=== PATIENT | female | born 1975 | race Caucasian/White ===

== ENCOUNTER 2020-01-04 17:48 | Emergency (ER) | payer OTHER, SELFPAY ==
[2020-01-04 17:55] VITALS: BP 151/94; PULSE 92; RESP 18; TEMP 37.1; O2SAT 100; BMI 29.1
--- NOTE | 2020-01-04 18:14 | DI.RAD.S_ITS ---
PROCEDURE: XR CHEST 1V INDICATIONS: syncope, chest pain, occurred while coughing TECHNIQUE: One view of the chest was acquired. COMPARISON: None. FINDINGS: Surgical changes and devices: None. Lungs and pleura: Lungs are clear. No pleural effusions or pneumothorax. Mediastinum: Mediastinal contours appear normal. Heart size is normal. Bones and chest wall: No suspicious bony lesions. Overlying soft tissues appear unremarkable. IMPRESSION: No trauma found, sources chest pain is not identified. No pneumonia seen. Dictated by: Zhang Nobles M.D. on 01/04/2020 at 18:45 Approved by: Zhang Nobles M.D. on 01/04/2020 at 18:46
--- NOTE | 2020-01-04 18:17 | ED.SYNCOPE ---
HPI - Syncope General Chief Complaint: Syncope Stated Complaint: coughing, blacked out earlier Time Seen by Provider: 01/04/20 18:12 Source: patient Mode of arrival: Ambulatory Limitations: no limitations History of Present Illness HPI narrative: This is a 44-year-old female comes emergency department with complaint of coughing and syncopal episode. Patient states for about a week she has had some nasal congestion and clear drainage. She developed a migraine and had a headache on the right side for about 3 days which has almost completely resolved but is still present. She states she had a telemedicine visit with her physician. At some point she was directed to get covered testing on Tuesday which she had in [place] she has not received the results. She has not had fevers but she has had a cough which has been nonproductive as well as some chest pain on the left side. She states that she has been sleeping for the regularly for the last couple days and today she woke up coughing very hard and went to use her inhaler and woke up on the floor. Patient states she did use her inhaler afterwards it was helpful. She has had episodes of vomiting intermittently but related these to her headache. She has not had any diarrhea or other GI symptoms. She denies any urinary symptoms. She states that she does have ADHD, generalized anxiety, asthma which she takes Advair twice daily and was instructed by her physician to take albuterol 4 times daily regardless of her symptoms during the pandemic which she feels is probably making her more anxious. 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 Related Data Home Medications Medication Instructions Recorded Confirmed dextroamphetamine-amphetamine 20 20 mg PO BID 08/08/19 08/08/19 mg tablet fluticasone 100 mcg-salmeterol 50 1 puff INHALATION BID 08/08/19 08/08/19 mcg/dose blistr powdr for inhalation fluticasone propionate 100 2 inhalation INHALATION BID 08/08/19 08/08/19 mcg/actuation blister powder for inhalation venlafaxine 150 mg 150 mg PO DAILY 08/08/19 08/08/19 capsule,extended release 24 hr Previous Rx's Medication Instructions Recorded azithromycin 250 mg tablet See Rx Instructions PO .COMPLEX #6 08/08/19 tab Allergies Allergy/AdvReac Type Severity Reaction Status Date / Time No Known Drug Allergies Allergy Verified 01/04/20 17:55 Review of Systems Review of Systems ROS Unobtainable: All systems reviewed & are unremarkable except as noted in HPI and below Patient History Medical History (Updated 01/04/20 @ 20:09 by Brenda Nava DO) ADHD (Acute) Anxiety (Acute) Asthma (Acute) Surgical History (Updated 01/04/20 @ 18:30 by Brenda Nava DO) H/O breast augmentation (Acute) H/O: hysterectomy (Acute) Exam Narrative Exam Narrative: GENERAL: Alert and oriented x three, well-nourished female in mild distress. Patient is mildly shaky. She relates this to her recent use of albuterol at home. HEENT: Head normocephalic, atraumatic, EOMI, pupils reactive, face symmetric, moist mucous membranes NECK: Supple, full range of motion CARDIOVASCULAR: Regular rate and rhythm without murmurs, rubs or gallops. RESPIRATORY: Breath sounds equal bilaterally, no wheezes rales or rhonchi. No tachypnea, no accessory muscle use. Patient is able to speak with in full sentences without any issue. No respiratory distress appreciated. ABDOMEN: Soft, nontender. Normoactive bowel sounds all 4 quadrants. No guarding or rebound, rigidity, no mass : No CVA tenderness EXTREMITIES: Normal range of motion, no clubbing or edema. Neurovascularly intact NEUROLOGICAL: Cranial nerves II through XII grossly intact. Moving all extremities SKIN: Warm, dry, no petechiae, no rashes or lesions. Initial Vital Signs Initial Vital Signs: Vital Signs Temperature 98.8 F 01/04/20 17:55 Pulse Rate 92 H 01/04/20 17:55 Respiratory Rate 18 01/04/20 17:55 Blood Pressure 151/94 H 01/04/20 17:55 Pulse Oximetry 100 01/04/20 17:55 Course Orders Ordered: ED Orders 01/04/20 18:14 XR chest 1V Stat 01/04/20 19:21 C-Reactive Protein Quant Stat Complete Blood Count AUTO DIFF Stat Comprehensive Metabolic Panel Stat D Dimer Stat Troponin & CK Cardiac Panel Stat 01/04/20 19:52 Urine Drug Screen, Rapid Stat Discontinued Medications Sodium Chloride (Normal Saline 0.9%) 1,000 mls @ 1,000 mls/hr IV BOLUS ONE Stop: 01/04/20 19:13 Last Infusion: 01/04/20 20:37 Dose: 0 mls/hr Documented by: Admin: 01/04/20 19:10 Dose: 1,000 mls/hr Documented by: ROSA Ketorolac Tromethamine (Toradol) 15 mg IV NOW ONE Stop: 01/04/20 18:28 Last Admin: 01/04/20 19:10 Dose: 15 mg Documented by: ROSA Vital Signs Vital signs: Vital Signs - 8 hr 01/04/20 17:55 01/04/20 19:44 01/04/20 20:10 Temperature 98.8 F Pulse Rate 92 H 84 80 Respiratory Rate 18 27 H 23 Blood Pressure 151/94 H Blood Pressure [Left Arm] 127/76 134/76 Pulse Oximetry 100 100 99 01/04/20 20:37 Temperature Pulse Rate 77 Respiratory Rate 16 Blood Pressure 128/75 Blood Pressure [Left Arm] Pulse Oximetry 97 MDM - Syncope Lab Data Attestation: I reviewed the patient's lab results. Result diagrams: 01/04/20 19:21 01/04/20 19:21 Labs: Lab Results 01/04/20 01/04/20 01/04/20 Range/Units 19:21 19:21 19:21 WBC 5.2 (4.5-11.0) X10^3/uL RBC 4.50 (4.0-5.2) X10^6/uL Hgb 14.0 (12.0-16.0) g/dL Hct 41.7 (36-46) % MCV 92.6 (80-100) fL MCH 31.1 (26-34) PG MCHC 33.5 (30-36) % RDW 13.7 (11.6-14.8) % Plt Count 238 (150-400) X10^3/uL Neut % (Auto) 63.6 (50-75) % Lymph % (Auto) 27.2 (25-40) % Spalding % (Auto) 7.2 (3-14) % Eos % (Auto) 1.1 L (2-4) % Baso % (Auto) 0.9 (0-2) % Neut # (Auto) 3300 (3298-2380) /uL Lymph # (Auto) 1400 (3985-8389) /uL Spalding # (Auto) 400 (0-900) /uL Eos # (Auto) 100 (0-450) /uL Baso # (Auto) 0 (0-100) /uL D-Dimer < 200 (<230) ng/mL Sodium 140 (137-145) mmol/L Potassium 3.4 (3.4-5.1) mmol/L Chloride 109 H (98-107) mmol/L Carbon Dioxide 24 (22-32) mmol/L BUN 14 (7-17) mg/dL Creatinine 0.82 (0.52-1.04) mg/dL Estimated GFR > 60.0 (>60) mL/min BUN/Creatinine Ratio 17.1 (6-22) Glucose 75 (70-100) mg/dL Calcium 9.0 (8.4-10.2) mg/dL Total Bilirubin 0.3 (0.2-1.3) mg/dL AST 18 (14-36) IU/L ALT 13 (<35) IU/L Alkaline Phosphatase 67 (38-126) U/L Total Creatine Kinase 64 (30-135) U/L CK-MB (CK-2) TNP CK-MB (CK-2) Rel Index TNP Troponin I < 0.012 (0.01-0.034) ng/mL C-Reactive Protein (<1.0) mg/dL Total Protein 6.5 (6.3-8.2) g/dL Albumin 3.8 (3.5-5.0) g/dL Globulin 2.7 (1.7-4.1) g/dL Albumin/Globulin Ratio 1.4 (1.0-2.8) U Opiates 300ng/mL cut (Negative) Ur Oxycodone Screen (Negative) Urine Methadone Screen (Negative) Ur Barbiturates Screen (Negative) U Tricyclic Antidepress (Negative) Ur Phencyclidine Scrn (Negative) Ur Amphetamines Screen (Negative) U Methamphetamines Scrn (Negative) Ur MDMA Scrn (Ecstasy) (Negative) U Benzodiazepines Scrn (Negative) Urine Cocaine Screen (Negative) U Marijuana (THC) Screen (Negative) 01/04/20 01/04/20 Range/Units 19:21 19:52 WBC (4.5-11.0) X10^3/uL RBC (4.0-5.2) X10^6/uL Hgb (12.0-16.0) g/dL Hct (36-46) % MCV (80-100) fL MCH (26-34) PG MCHC (30-36) % RDW (11.6-14.8) % Plt Count (150-400) X10^3/uL Neut % (Auto) (50-75) % Lymph % (Auto) (25-40) % Spalding % (Auto) (3-14) % Eos % (Auto) (2-4) % Baso % (Auto) (0-2) % Neut # (Auto) (6991-5653) /uL Lymph # (Auto) (9904-1178) /uL Sp[place]ding # (Auto) (0-900) /uL Eos # (Auto) (0-450) /uL Baso # (Auto) (0-100) /uL D-Dimer (<230) ng/mL Sodium (137-145) mmol/L Potassium (3.4-5.1) mmol/L Chloride (98-107) mmol/L Carbon Dioxide (22-32) mmol/L BUN (7-17) mg/dL Creatinine (0.52-1.04) mg/dL Estimated GFR (>60) mL/min BUN/Creatinine Ratio (6-22) Glucose (70-100) mg/dL Calcium (8.4-10.2) mg/dL Total Bilirubin (0.2-1.3) mg/dL AST (14-36) IU/L ALT (<35) IU/L Alkaline Phosphatase (38-126) U/L Total Creatine Kinase (30-135) U/L CK-MB (CK-2) CK-MB (CK-2) Rel Index Troponin I (0.01-0.034) ng/mL C-Reactive Protein < 0.5 (<1.0) mg/dL Total Protein (6.3-8.2) g/dL Albumin (3.5-5.0) g/dL Globulin (1.7-4.1) g/dL Albumin/Globulin Ratio (1.0-2.8) U Opiates 300ng/mL cut Negative (Negative) Ur Oxycodone Screen Negative (Negative) Urine Methadone Screen Negative (Negative) Ur Barbiturates Screen Negative (Negative) U Tricyclic Antidepress Negative (Negative) Ur Phencyclidine Scrn Negative (Negative) Ur Amphetamines Screen Negative (Negative) U Methamphetamines Scrn Negative (Negative) Ur MDMA Scrn (Ecstasy) Negative (Negative) U Benzodiazepines Scrn Negative (Negative) Urine Cocaine Screen Negative (Negative) U Marijuana (THC) Screen Positive H (Negative) Point of Care Testing Test Results Negative Urine Dip Bedside Urine Glucose Negative Bedside Urine Bilirubin - Negative Bedside Urine Ketone - Negative Urine Specific Stanley 1.015 Bedside Urine Occult Blood - Negative Bedside Urine pH 6.5 Bedside Urine Protein - Negative Bedside Urine Urobilinogen - Negative Bedside Urine Nitrite - Negative Bedside Urine Leukocytes - Negative Esterase Imaging Data Chest x-ray: Radiologist's Impression: [address] [address] XRay Report Signed Patient: Radha Childs RMR#: [id number] : 1975Acct:[id number] Age/Sex: 44 / FDate of Service: 01/04/20 Loc: ED Accession Number: [id number] Procedure: XR chest 1V Ordering Provider: Brenda Nava D.O. PROCEDURE: XR CHEST 1V INDICATIONS: syncope, chest pain, occurred while coughing TECHNIQUE: One view of the chest was acquired. COMPARISON: None. FINDINGS: Surgical changes and devices: None. Lungs and pleura: Lungs are clear. No pleural effusions or pneumothorax. Mediastinum: Mediastinal contours appear normal. Heart size is normal. Bones and chest wall: No suspicious bony lesions. Overlying soft tissues appear unremarkable. IMPRESSION: No trauma found, sources chest pain is not identified. No pneumonia seen. Dictated by: Zhang Nobles M.D. on 01/04/2020 at 18:45 Approved by: Zhang Nobles M.D. on 01/04/2020 at 18:46 ECG Data Attestation: I personally reviewed and interpreted this ECG as follows: Prior ECG tracings: not available for review Interpretation: Patient has sinus rhythm rate of 87, P are 139 QRS of 97 QTC of 408. V1 V2 show Q-wave. No clear ST elevation appreciated. No depression. No prior EKGs available. MDM Narrative Medical decision making narrative: Patient's chest x-ray is negative any acute changes, point of care urine and test are both negative. CBC is normal with low eosinophils but lymphocyte count is in the normal range as well as neutrophils. D-dimer is negative. Patient's chloride is 109 but otherwise normal electrolytes and in renal function with normal LFTs and negative troponin with no major changes in patient's EKG. Urine tox shows positive for thc, no other illicit. Patient ambulated into the department without any issue, she had what sounds like a syncopal episode while having a coughing ?fit? she was not wheezy on exam or in any respiratory distress here in the department. She does have covid testing pending which is likely to be resulted over the next several days but at this time she would not meet any criteria for admission and her labs do not fit the traditional pattern at this time. Patient does not have any other findings suspicious for other emergent causes. Patient states she does have a spacer along with her albuterol which is a recent prescription. Discharge Plan Departure Patient Disposition: Home Clinical Impression: Syncope Qualifiers: Encounter type: initial encounter Discharge Date/Time: 01/04/20 20:37 Instructions: DI for Syncope in Adults (Fainting) Activity Restrictions/Additional Instructions: *As your coronavirus test from Tuesday is still pending you should continue to self isolate as recommended by the CDC and [facility]. *What to do: * per recommendations from the CDC and the [facility] Department of Health * stay home except to get medical care. Restrict activities outside your home, except for getting medical care. Do not go to work, school, or public areas. Avoid using public transportation, ride sharing, or taxis. * separate yourself from other people in your home. * call ahead before visiting your doctor * Wear a face mask * Cover your coughs and sneezes * Clean your hands often * Avoid sharing household items * Clean all high-touch services every day * Monitor your symptoms and seek prompt medical attention if your illness is worsening, particularly with difficulty in breathing. Discussed continuing home isolation * for individuals with symptoms who are confirmed or suspected cases of COVID-19 and are directed to care for themselves at home, discontinue home isolation under the following conditions: 1. At least 72 hours have passed since recovery, defined as resolution of fever without the use of fever reducing medications, and improvement in respiratory symptoms (cough, shortness of breath) AND, 2. At least 7 days have passed since symptoms 1st appeared Individuals with laboratory confirmed COVID-19 who have not had any symptoms may discontinue home isolation when at least 7 days have passed since the date of their 1st COVID-19 diagnostic test and have had no subsequent illness. Continue to use your Flovent as prescribed. I would recommend using your inhaler more on a as needed basis for her albuterol. I would also recommend using with a spacer. Continue your other home medications as prescribed. Prescriptions: No Action venlafaxine [Effexor XR] 150 mg capsule,extended release 24hr 150 mg PO DAILY RF: 0 dextroamphetamine-amphetamine [Adderall] 20 mg tablet 20 mg PO BID RF: 0 Flovent Diskus 100 mcg/actuation blister with device 2 inhalation INHALATION BID RF: 0 fluticasone propion-salmeterol [Advair Diskus] 100-50 mcg/dose blister with device 1 puff INHALATION BID RF: 0 azithromycin 250 mg tablet See Rx Instructions PO .COMPLEX Qty: 6 RF: 0
[2020-01-04] MEDS: SODIUM CHLORIDE 0.9% 1,000 ML 1000 ML IV (19:10)
[2020-01-04] MEDS: KETOROLAC 60 MG/2 ML VIAL 15 MG IV (19:10)
--- NOTE | 2020-01-04 19:13 | PC.NURSE ---
Pt states she was showing sx of covid19. was swabbed yesterday at her PCP in [place]. had a coughing fit abput 30min-1hr [employer] and passed out and woke up on the floor does not know how long she lost conciousness for. reports only pain is in her chest and back from coughing. placed on graphic manager. EKG obtained. IV placed and labs sent. Lab in to draw. torodol given and IVF infusing. speaking in full sentences. 100% RA.
[2020-01-04 19:29] LABS: Add Manual Diff / Slide Review NO; Basophils Absolute Auto 0 /uL (0-100); Basophils Percent Auto 0.9 % (0-2); Eosinophils Absolute Auto 100 /uL (0-450); Eosinophils Percent Auto 1.1 % (2-4); Hematocrit 41.7 % (36-46); Lymphocytes Absolute Auto 1400 /uL (1100-4500); Lymphocytes Percent Auto 27.2 % (25-40); Mean Corpuscular HGB Conc 33.5 % (30-36); Mean Corpuscular Hemoglobin 31.1 PG (26-34); Mean Corpuscular Volume 92.6 fL (80-100); Monocytes Absolute Auto 400 /uL (0-900); Monocytes Percent Auto 7.2 % (3-14); Neutrophils Absolute Auto 3300 /uL (1500-7000); Neutrophils Percent Auto 63.6 % (50-75); Platelet Count 238 X10^3/uL (150-400); Red Cell Distribution Width 13.7 % (11.6-14.8); White Blood Cell Count 5.2 X10^3/uL (4.5-11.0)
[2020-01-04 19:40] LABS: D Dimer < 200 ng/mL (<230)
[2020-01-04 19:41] LABS: Alanine Aminotransferase 13 IU/L (<35); Albumin 3.8 g/dL (3.5-5.0); Albumin Globulin Ratio 1.4 (1.0-2.8); Alkaline Phosphatase 67 U/L (38-126); Aspartate Aminotransferase 18 IU/L (14-36); BUN Creatinine Ratio 17.1 (6-22); Bilirubin Total 0.3 mg/dL (0.2-1.3); Blood Urea Nitrogen 14 mg/dL (7-17); Carbon Dioxide 24 mmol/L (22-32); Chloride 109 mmol/L (98-107); Creatine Kinase 64 U/L (30-135); Estimated Glomerular Filt Rate > 60.0 mL/min (>60); Globulin 2.7 g/dL (1.7-4.1); Glucose 75 mg/dL (70-100); HEMOLYSIS < 15 (0-50); Potassium 3.4 mmol/L (3.4-5.1); Sodium 140 mmol/L (137-145); Total Protein 6.5 g/dL (6.3-8.2)
[2020-01-04 19:44] VITALS: BP 127/76; PULSE 84; RESP 27; O2SAT 100
[2020-01-04 19:49] LABS: C-Reactive Protein Quant < 0.5 mg/dL (<1.0)
[2020-01-04 19:53] LABS: Troponin I < 0.012 ng/mL (0.01-0.034)
[2020-01-04 20:06] LABS: UR Morphine/Opiate cutoff 300 Negative (Negative); Ur Creatinine Normal (Normal); Ur Specific Gravity Normal (Normal); Urine Amphetamines Negative (Negative); Urine Barbiturates Negative (Negative); Urine Benzodiazepines Negative (Negative); Urine Cocaine Negative (Negative); Urine MDMA Negative (Negative); Urine Methadone Negative (Negative); Urine Methamphetamines Negative (Negative); Urine Oxycodone Negative (Negative); Urine Phencyclidine Negative (Negative); Urine Tetrahydrocannabinol Positive (Negative); Urine Tricyclic Antidepressant Negative (Negative); Urine pH Normal (Normal)
[2020-01-04 20:10] VITALS: BP 134/76; PULSE 80; RESP 23; O2SAT 99
[2020-01-04 20:37] VITALS: BP 128/75; PULSE 77; RESP 16; O2SAT 97
== END 2020-01-04 20:37 | disposition home or self-care (01) ==
PROVIDERS: Emergency Provider Emergency Medicine
DX: R55 Syncope and collapse (principal); R05 Cough; R07.9 Chest pain, unspecified
CPT/HCPCS: 36415; 71045; 80053; 80305; 81003; 81025; 82550; 84484; 85025; 85379; 86140; 93005; 96361; 96374; 99284; J1885

== ENCOUNTER → 2020-07-10 07:13 | Outpatient (CLI) | payer OTHER, SELFPAY ==
[2020-07-10 11:19] LABS: Alanine Aminotransferase 20 IU/L (<35); Albumin 4.5 g/dL (3.5-5.0); Albumin Globulin Ratio 1.7 (1.0-2.8); Alkaline Phosphatase 97 U/L (38-126); Aspartate Aminotransferase 29 IU/L (14-36); BUN Creatinine Ratio 23.5 (6-22); Bilirubin Total 0.4 mg/dL (0.2-1.3); Blood Urea Nitrogen 19 mg/dL (7-17); Calcium 9.6 mg/dL (8.4-10.2); Carbon Dioxide 28 mmol/L (22-32); Chloride 103 mmol/L (98-107); Cholesterol 218 mg/dL (140-199); Estimated Glomerular Filt Rate > 60.0 mL/min (>60); Globulin 2.7 g/dL (1.7-4.1); Glucose 81 mg/dL (70-100); HDL Cholesterol 84 mg/dL (40-60); HEMOLYSIS < 15 (0-50); LDL Cholesterol Calculated 114 mg/dL (<100); Potassium 4.6 mmol/L (3.4-5.1); Sodium 137 mmol/L (137-145); Total Protein 7.2 g/dL (6.3-8.2); Triglycerides 99 mg/dL (35-150)
[2020-07-10 11:29] LABS: Free T4, Direct Thyroxine 1.41 ng/dL (0.78-2.19)
[2020-07-10 11:42] LABS: Thyroid Stimulating Hormone 5.32 uIU/mL (0.47-4.68)
[2020-07-10 11:52] LABS: Vitamin D 25 Hydroxy (D3) 44.6 ng/mL (30.0-100.0)
[2020-07-11 10:29] LABS: Insulin Level Total 3.9 uIU/mL (2.6-24.9)
== END ==
PROVIDERS: PCP Registered Nurse; Referring Provider Registered Nurse; Visit Provider Registered Nurse
DX: E88.81 Metabolic syndrome and other insulin resistance (principal); E07.89 Other specified disorders of thyroid
CPT/HCPCS: 36415; 80053; 80061; 82306; 83525; 84439; 84443

== ENCOUNTER 2021-02-01 20:08 | Emergency (ER) | payer OTHER, SELFPAY ==
[2021-02-01] VITALS (7 sets, daily range): BP systolic 136; BP diastolic 84; PULSE 101–125; RESP 11–27; TEMP 37.2; O2SAT 97–100; BMI 31.6
[2021-02-01] MEDS: SODIUM CHLORIDE 0.9% 1,000 ML 1000 ML IV ×2 (20:50→23:55)
[2021-02-01] MEDS: ONDANSETRON 4 MG/2 ML INJ IV (20:51)
[2021-02-01 21:32] LABS: Prothrombin Time 11.5 SECONDS (10.1-12.7)
[2021-02-01 21:36] LABS: Alanine Aminotransferase 17 IU/L (<35); Albumin 3.7 g/dL (3.5-5.0); Albumin Globulin Ratio 1.4 (1.0-2.8); Alkaline Phosphatase 78 U/L (38-126); Aspartate Aminotransferase 22 IU/L (14-36); BUN Creatinine Ratio 15.8 (6-22); Blood Urea Nitrogen 16 mg/dL (7-17); Calcium 8.7 mg/dL (8.4-10.2); Carbon Dioxide 18 mmol/L (22-32); Chloride 110 mmol/L (98-107); Estimated Glomerular Filt Rate 59.8 mL/min (>60); Globulin 2.6 g/dL (1.7-4.1); Glucose 117 mg/dL (70-100); HEMOLYSIS 20 (0-50); Lipase 65 U/L (23-300); Potassium 3.5 mmol/L (3.4-5.1); Sodium 138 mmol/L (137-145); Total Protein 6.3 g/dL (6.3-8.2)
[2021-02-01 21:37] LABS: Bilirubin Total < 0.1 mg/dL (0.2-1.3)
[2021-02-01 21:38] LABS: Add Manual Diff / Slide Review NO; Basophils Absolute Auto 100 /uL (0-100); Basophils Percent Auto 0.5 % (0-2); Eosinophils Absolute Auto 100 /uL (0-450); Eosinophils Percent Auto 0.8 % (2-4); Hematocrit 41.4 % (36-46); Hemoglobin 13.8 g/dL (12.0-16.0); Lymphocytes Absolute Auto 2600 /uL (1100-4500); Lymphocytes Percent Auto 23.7 % (25-40); Mean Corpuscular HGB Conc 33.3 % (30-36); Mean Corpuscular Hemoglobin 30.3 PG (26-34); Monocytes Absolute Auto 600 /uL (0-900); Monocytes Percent Auto 5.7 % (3-14); Neutrophils Absolute Auto 7500 /uL (1500-7000); Neutrophils Percent Auto 69.3 % (50-75); Platelet Count 283 X10^3/uL (150-400); Red Blood Cell Count 4.55 X10^6/uL (4.0-5.2); Red Cell Distribution Width 13.1 % (11.6-14.8); White Blood Cell Count 10.9 X10^3/uL (4.5-11.0)
[2021-02-01 21:45] LABS: PTT Partial Thromboplastin Tim 35 SECONDS (26.4-36.2)
[2021-02-01] MEDS: diphenhydrAMINE 50 MG/ML VIAL IV (22:44)
--- NOTE | 2021-02-01 23:37 | ED.ABDPAIN ---
HPI - Abdominal Pain General Chief Complaint: Abdominal Pain Stated Complaint: vomiting since last tuesday, upper R abdomen pain Time Seen by Provider: 02/01/21 22:33 Source: patient Mode of arrival: Wheelchair Limitations: no limitations History of Present Illness HPI narrative: This is a 45-year-old female comes in with complaint of vomiting since last Tuesday. Patient has started a new non insulin diabetic injection and has developed nausea and vomiting since. She did stop that medication and continued to have nausea and vomiting. She notes for the past month she has had a metallic taste, she has also had significant heartburn for the past month which has been increasing. She states that her burps and emesis are quite foul. Patient states the 3 time she stone up recently have been green or darkened color she has not appreciated any diarrhea, she has not had any constipation. She has not any black or bloody stools. She denies any urinary symptoms. She came in today because she developed right upper quadrant radiating to her back flank pain. Patient is on the medication for insulin resistance, she also takes Vyvanse and venlafaxine. She has had a hysterectomy. Related Data Home Medications Medication Instructions Recorded Confirmed dextroamphetamine-amphetamine 20 20 mg PO BID 08/08/19 08/08/19 mg tablet fluticasone 100 mcg-salmeterol 50 1 puff INHALATION BID 08/08/19 08/08/19 mcg/dose blistr powdr for inhalation fluticasone propionate 100 2 inhalation INHALATION BID 08/08/19 08/08/19 mcg/actuation blister powder for inhalation venlafaxine 150 mg 150 mg PO DAILY 08/08/19 08/08/19 capsule,extended release 24 hr Previous Rx's Medication Instructions Recorded azithromycin 250 mg tablet See Rx Instructions PO .COMPLEX #6 08/08/19 tab sucralfate [Carafate] 1 g PO QACHS #40 tab 02/02/21 Allergies Allergy/AdvReac Type Severity Reaction Status Date / Time baclofen AdvReac Chest Pain Verified 02/01/21 20:22 paroxetine [From Paxil] AdvReac Palpitation Verified 02/01/21 20:22 s zolpidem [From Ambien] AdvReac Hallucinati Verified 02/01/21 20:22 ng Review of Systems Review of Systems ROS Unobtainable: All systems reviewed & are unremarkable except as noted in HPI and below Patient History Medical History ADHD Anxiety Asthma Surgical History H/O breast augmentation H/O: hysterectomy Social History Smoking Status: Current every day smoker Smoking Status: Current every day smoker alcohol intake frequency: 0-2 drinks per day Substance Use Type: marijuana Exam Narrative Exam Narrative: GENERAL: Alert and oriented x three, BMI of 31, well-nourished female in mild to moderate distress. HEENT: Head normocephalic, atraumatic, EOMI, pupils reactive, face symmetric, moist mucous membranes NECK: Supple, full range of motion CARDIOVASCULAR: Regular rate and rhythm without murmurs, rubs or gallops. RESPIRATORY: Breath sounds equal bilaterally, no wheezes rales or rhonchi. ABDOMEN: Soft, positive for right upper quadrant tenderness. Normoactive bowel sounds all 4 quadrants. No guarding or rebound, rigidity, no mass : No CVA tenderness EXTREMITIES: Normal range of motion, no clubbing or edema. Neurovascularly intact NEUROLOGICAL: Cranial nerves II through XII grossly intact. Moving all extremities SKIN: Warm, dry, no petechiae, no rashes or lesions. Initial Vital Signs Initial Vital Signs: Vital Signs Temperature 98.9 F 02/01/21 20:15 Pulse Rate 125 H 02/01/21 20:15 Respiratory Rate 22 02/01/21 20:15 Blood Pressure 136/84 02/01/21 20:15 Pulse Oximetry 98 02/01/21 20:15 Course Orders Ordered: ED Orders 02/01/21 23:42 US abdomen limited Stat 02/02/21 00:22 CT abdomen pelvis w con Stat Discontinued Medications Diphenhydramine HCl (Diphenhydramine 50 Mg/Ml Vial) 50 mg IV NOW ONE Stop: 02/01/21 22:34 Last Admin: 02/01/21 22:44 Dose: 50 mg Documented by: ESNODGRASDenise Sodium Chloride (Normal Saline 0.9%) 1,000 mls @ 1,000 mls/hr IV BOLUS ONE Stop: 02/01/21 21:44 Last Infusion: 02/01/21 22:08 Dose: 0 mls/hr Documented by: Admin: 02/01/21 20:50 Dose: 1,000 mls/hr Documented by: TRINY Sodium Chloride (Normal Saline 0.9%) 1,000 mls @ 1,000 mls/hr IV BOLUS ONE Stop: 02/02/21 00:51 Last Infusion: 02/02/21 01:07 Dose: 0 mls/hr Documented by: Admin: 02/01/21 23:55 Dose: 1,000 mls/hr Documented by: TRINY Ketorolac Tromethamine (Ketorolac 30 Mg/Ml Vial) 15 mg IV NOW ONE Stop: 02/01/21 23:43 Last Admin: 02/01/21 23:48 Dose: 15 mg Documented by: TRINY Morphine Sulfate (Morphine 4 Mg/Ml Inj) 4 mg IV NOW ONE Stop: 02/02/21 00:29 Last Admin: 02/02/21 01:00 Dose: 4 mg Documented by: TRINY Ondansetron HCl (Ondansetron 4 Mg/2 Ml Inj) 4 mg IV NOW ONE Stop: 02/01/21 20:46 Last Admin: 02/01/21 20:51 Dose: 4 mg Documented by: TRINY Ondansetron HCl (Ondansetron 4 Mg Odt Prepack) 1 bottle MISC SEEINSTR ONE Stop: 02/02/21 02:28 Last Admin: 02/02/21 02:46 Dose: 1 bottle Documented by: MADDY Pantoprazole Sodium (Pantoprazole 40 Mg Vial) 80 mg IV NOW ONE Stop: 02/01/21 23:43 Last Admin: 02/01/21 23:48 Dose: 80 mg Documented by: TRINY Reevaluation(s) Reevaluation #1: Reviewed patient's labs and imaging. She has rectal suppository and headaches as well as Compazine, Phenergan and Zofran orally at home. Discussed with patient we can add Carafate to see if this is helpful. We reviewed her imaging findings in that she probably needs an EGD. She has been having bowel movements regularly so my suspicion for ileus is low. Time: 02:40 Vital Signs Vital signs: Vital Signs - 8 hr 02/02/21 01:03 02/02/21 01:04 02/02/21 01:30 Pulse Rate 88 86 88 Respiratory Rate 13 16 Blood Pressure 122/78 Pulse Oximetry 100 98 96 02/02/21 02:00 02/02/21 02:30 Pulse Rate 84 80 Respiratory Rate 17 18 Blood Pressure 111/68 Pulse Oximetry 95 96 MDM - Abdominal Pain Lab Data Attestation: I reviewed the patient's lab results. Result diagrams: 02/01/21 21:15 02/01/21 21:15 Labs: Lab Results 02/01/21 02/01/21 02/01/21 Range/Units 21:15 21:15 21:15 WBC 10.9 (4.5-11.0) X10^3/uL RBC 4.55 (4.0-5.2) X10^6/uL Hgb 13.8 (12.0-16.0) g/dL Hct 41.4 (36-46) % MCV 91.0 (80-100) fL MCH 30.3 (26-34) PG MCHC 33.3 (30-36) % RDW 13.1 (11.6-14.8) % Plt Count 283 (150-400) X10^3/uL Neut % (Auto) 69.3 (50-75) % Lymph % (Auto) 23.7 L (25-40) % Ches[place] % (Auto) 5.7 (3-14) % Eos % (Auto) 0.8 L (2-4) % Baso % (Auto) 0.5 (0-2) % Neut # (Auto) 7500 H (5436-9392) /uL Lymph # (Auto) 2600 (8907-1159) /uL [place] # (Auto) 600 (0-900) /uL Eos # (Auto) 100 (0-450) /uL Baso # (Auto) 100 (0-100) /uL PT 11.5 (10.1-12.7) SECONDS INR 1.0 (0.9-1.3) APTT 35 (26.4-36.2) SECONDS Sodium 138 (137-145) mmol/L Potassium 3.5 (3.4-5.1) mmol/L Chloride 110 H (98-107) mmol/L Carbon Dioxide 18 L (22-32) mmol/L BUN 16 (7-17) mg/dL Creatinine 1.01 (0.52-1.04) mg/dL Estimated GFR 59.8 L (>60) mL/min BUN/Creatinine Ratio 15.8 (6-22) Glucose 117 H (70-100) mg/dL Calcium 8.7 (8.4-10.2) mg/dL Total Bilirubin < 0.1 L (0.2-1.3) mg/dL AST 22 (14-36) IU/L ALT 17 (<35) IU/L Alkaline Phosphatase 78 (38-126) U/L Total Protein 6.3 (6.3-8.2) g/dL Albumin 3.7 (3.5-5.0) g/dL Globulin 2.6 (1.7-4.1) g/dL Albumin/Globulin Ratio 1.4 (1.0-2.8) Lipase 65 (23-300) U/L Point of care testing: Urine Dip Bedside Urine Glucose Negative Bedside Urine Bilirubin - Negative Bedside Urine Ketone - Negative Urine Specific Alexander 1.030 Bedside Urine Occult Blood - Negative Bedside Urine pH 6.0 Bedside Urine Protein - Negative Bedside Urine Urobilinogen - Negative Bedside Urine Nitrite - Negative Bedside Urine Leukocytes - Negative Esterase Imaging Data US - abdomen: My Impression: Radiologist's Impression: Unremarkable right upper quadrant ultrasound pancreas obscured by bowel Codi. Gallbladder normal. No sonographic Blanco sign. No bile duct dilation, CBD 5 mm with normal liver. CT scan - abdomen/pelvis: Radiologist's Impression: Proximal jejunal loops are moderately distended with fluid, there is no discrete transition point. Consider localized ileus. Abundant stool quantity. ECG Data Attestation: I personally reviewed and interpreted this ECG as follows: Interpretation: Sinus tach, rate of 116, VT 152 QRS is 76 and QTC of 453. Nonspecific change. MDM Narrative Medical decision making narrative: This is a 45-year-old female comes in with a month of heartburn type symptoms, metallic taste in her mouth with increasing discomfort and now nausea and vomiting starting last Tuesday and then developed right upper quadrant pain. Patient was recently started on a injectable medication for insulin resistance which is not insulin itself. She stopped this but did not have any resolution symptoms. Labs are reviewed with patient, ultrasound does not show any acute findings and CT was obtained as well for persistent vomiting which shows possible ileus but patient has been having regular bowel movements. Discussed with patient she may be having gastritis or possibly an ulcer and would probably benefit from EGD. She has multiple antiemetics at home. Was given a prescription for Carafate in addition to her home medications she has already been started on appropriate antibiotics for H pylori. Patient did not continue to have active vomiting in the department and discharged home with plan for close follow-up and return precautions. Discharge Plan Departure Patient Disposition: Home Clinical Impression: Abdominal pain, Nausea & vomiting Instructions: DI for Vomiting -- Adult Activity Restrictions/Additional Instructions: Follow up with your physician for recheck in the next 24-48 hours. You may benefit from EGD evaluation and referral is included below with General surgery. Your imaging today shows some moderately distended loops in the jejunum which can cause an ileus or decreased movement of the bowel. There is stool noted on your CT. try to hydrate as best you can to help continue to have bowel movements. Take zofran 1 temporally every 6 hours as needed for nausea. Add carafate to your current regimen. This was sent to [facility] in [place]. Please return for fevers greater 100.4 F, if you continue to have persistent vomiting, black or bloody stools, black or bloody emesis, if you are unable to have bowel movements and are not passing gas. Prescriptions: New sucralfate [Carafate] 1 gram tablet 1 g PO QACHS Qty: 40 RF: 0 No Action venlafaxine [Effexor XR] 150 mg capsule,extended release 24hr 150 mg PO DAILY RF: 0 dextroamphetamine-amphetamine [Adderall] 20 mg tablet 20 mg PO BID RF: 0 Flovent Diskus 100 mcg/actuation blister with device 2 inhalation INHALATION BID RF: 0 fluticasone propion-salmeterol [Advair Diskus] 100-50 mcg/dose blister with device 1 puff INHALATION BID RF: 0 azithromycin 250 mg tablet See Rx Instructions PO .COMPLEX Qty: 6 RF: 0 Referrals: Yaima North ARNP [Primary Care Provider] - Jessica Gay MD [Physician] -
--- NOTE | 2021-02-01 23:42 | DI.US.S_ITS ---
PROCEDURE: US ABDOMEN LIMITED INDICATIONS: RUQ PAIN, VOMITING TECHNIQUE: Real-time focused scanning was performed of the abdomen, with image documentation. COMPARISON: None. FINDINGS: Liver is normal in size and homogeneous in echotexture. Gallbladder is sonographically normal. No gallstones. No gallbladder wall thickening with gallbladder wall measuring 1.9 millimeters. No pericholecystic fluid. No sonographic Blanco sign. Biliary tree is nondilated. Common bile duct measures 4.6 millimeters. Pancreas is obscured by bowel gas and cannot be evaluated. IMPRESSION: No sonographic evidence of cholelithiasis or cholecystitis. If there is continued clinical concern for cholecystitis, a nuclear medicine HIDA scan should be considered for further evaluation. Dictated by: Sunita Dodson MD, PhD on 02/02/2021 at 9:11 Approved by: Sunita Dodson MD, PhD on 02/02/2021 at 9:11
[2021-02-01] MEDS: KETOROLAC 30 MG/ML VIAL 15 MG IV (23:48)
[2021-02-01] MEDS: PANTOPRAZOLE 40 MG VIAL 80 MG IV (23:48)
--- NOTE | 2021-02-02 00:22 | DI.CT.S_ITS ---
PROCEDURE: CT ABDOMEN PELVIS W CON INDICATIONS: n/v, RUQ pain. TECHNIQUE: After the administration of intravenous contrast, 5 mm thick sections acquired from the diaphragm to the symphysis. 5 mm coronal and sagittal reformats were acquired. For radiation dose reduction, the following was used: automated exposure control, adjustment of mA and/or kV according to patient size. COMPARISON: None. FINDINGS: Image quality: Excellent. ABDOMEN: Lung bases: Lung bases are clear. Heart size is normal. There is a small hiatal hernia. Solid organs: Evaluation of the liver demonstrates no focal hepatic lesions. The gallbladder appears within normal limits without calcified gallstones. Biliary system is non-dilated. Pancreas enhances normally. No peripancreatic fat stranding or fluid collections. No pancreatic duct dilatation. The spleen is normal in size. No adrenal nodules. Kidneys demonstrate no hydronephrosis. Peritoneum and bowel: Bowel loops demonstrate normal wall thickness. There is mild segmental fluid distention of the jejunum in the left upper quadrant with fluid levels. No definite focal transition point. The appendix is normal in appearance. There is colonic diverticulosis without acute diverticulitis. No free fluid or air. Nodes and vessels: No retroperitoneal or mesenteric adenopathy by size criteria. Aorta and inferior vena cava are normal in size. Miscellaneous: No ventral hernias. PELVIS: Genitourinary: Bladder wall thickness is normal. Miscellaneous: No inguinal hernias or adenopathy. Bones: No suspicious bony lesions. No vertebral body compression fractures. IMPRESSION: 1. Mild segmental fluid distention of the jejunum in the left upper quadrant with air-fluid levels but no focal transition point. The findings likely reflect a gastroenteritis or ileus. No definite focal transition point to suggest obstruction. 2. Colonic diverticulosis without acute diverticulitis. 3. No evidence of appendicitis. Dictated by: Srikanth Morrison M.D. on 02/02/2021 at 8:37 Approved by: Srikanth Morrison M.D. on 02/02/2021 at 8:48
[2021-02-02] MEDS: MORPHINE 4 MG/ML INJ IV (01:00)
[2021-02-02 01:03] VITALS: PULSE 88; RESP 13; O2SAT 100
[2021-02-02 01:04] VITALS: BP 122/78; PULSE 86; O2SAT 98
[2021-02-02 01:30] VITALS: PULSE 88; RESP 16; O2SAT 96
[2021-02-02 02:00] VITALS: BP 111/68; PULSE 84; RESP 17; O2SAT 95
[2021-02-02 02:30] VITALS: PULSE 80; RESP 18; O2SAT 96
[2021-02-02] MEDS: ONDANSETRON 4 MG ODT PREPACK 1 BOTTLE MISC (02:46)
== END 2021-02-02 02:58 | disposition home or self-care (01) ==
PROVIDERS: Emergency Provider Emergency Medicine; PCP Registered Nurse
DX: R10.9 Unspecified abdominal pain (principal); R11.2 Nausea with vomiting, unspecified
CPT/HCPCS: 36415; 74177; 76705; 80053; 81003; 83690; 85025; 85610; 85730; 93005; 93010; 96361; 96374; 96375; 99284; C9113; J1200; J1885; J2270; J2405; Q9967

== ENCOUNTER → 2021-08-07 13:27 | Outpatient (CLI) | payer OTHER, SELFPAY ==
--- NOTE | 2021-08-07 | DI.ECHO.S_ITS ---
[facility] +---------+ : : [address] [place] [place] : : : : [id number] : : : : Phone: [phone] Echocardiogram Report + + :Name: CIRILO SCHULZ Study Date: 08/07/2021 Height: 65 in : :[facility] ReadingLocation: Weight: 181 lb : : Gender: Female BSA: 1.9 m2 : :: 1975 Age: 46 yrs BP: 128/82 mmHg: :Reason For Study: Abnormal ECG : : Performed By: Julius Alonzo : :Referring: MAC RODRIGUEZ : + + Interpretation Summary 1) Normal left ventricular thickness, size, and systolic function (EF 55-60%). 2) Septal bounce present. 3) Normal right ventricular size and function. 4) No significant valvular abnormalities. 5) No prior Echo available for comparison. Procedure: A two-dimensional transthoracic echocardiogram with color flow and Doppler was performed. The study quality was technically adequate. Fair apical window. There is no prior echocardiogram noted for this patient. The patient was in normal sinus rhythm during the exam. Left Ventricle: The left ventricle is normal in size and wall thickness. The ejection fraction is estimated to be 55-60%. Left ventricular systolic function is normal. Septal bounce present. Right Ventricle: The right ventricle is normal in size and function. Atria: The left atrial size is normal. Borderline right atrial enlargement. There is no Doppler evidence for an interatrial shunt. Mitral Valve: The mitral valve is normal. There is trace mitral regurgitation. Aortic Valve: The aortic valve is trileaflet. The aortic valve opens well. There is no aortic valve stenosis. No aortic regurgitation is present. Tricuspid Valve: The tricuspid valve is normal. There is a trace or physiologic amount of tricuspid regurgitation. Pulmonary artery pressures cannot be estimated because of the lack of a measurable TR jet velocity but the IVC suggests a CVP of around 3 mmHg. Pulmonic Valve: The pulmonic valve is normal in structure and function. Great Vessels: The aortic root is normal size. The ascending aorta is normal in size. The aortic arch is normal in size. The IVC is of normal diameter and collapses greater than 50% with a sniff. This suggests a low right atrial pressure of 3 mm Hg. Pericardium/ Pleura There is no pericardial effusion. There is an anterior echo-free space consistent with a fat pad. There is no pleural effusion. MMode/2D Measurements & Calculations LVIDd: 4.1 cm LVOT diam: 1.9 cm LVIDs: 2.8 cm Ao root diam: 2.4 cm FS: 32.4 % asc Aorta Diam: 2.7 cm IVSd: 0.72 cm Ao Arch Diam (Prox Trans): 2.3 cm LVPWd: 0.86 cm LV meier. diameter/BSA (cm/m^2): 2.2 LV sys. diameter/BSA (cm/m^2): 1.5 LA A2 area: 14.2 cm2 RA long axis: 4.6 cm LA A4 area: 16.5 cm2 RA area: 14.2 cm2 LA length (vol): 4.7 cm RA vol: 37.7 ml LA vol: 42.6 ml RA : 19.9 ml/m2 LA vol index: 22.5 ml/m2 IVC diam: 1.4 cm TAPSE: 2.6 cm Doppler Measurements & Calculations Ao V2 max: 127.8 cm/sec LVOT Max Kranthi: 97.4 cm/sec Ao V2 mean: 96.2 cm/sec LV V1 max P.8 mmHg Ao max P.5 mmHg LV V1 VTI: 20.7 cm Ao mean P.0 mmHg BREA(I,D): 2.2 cm2 Ao V2 VTI: 26.9 cm BREA(V,D): 2.2 cm2 sev ratio: 0.77 BREA indexed to BSA (cm^2/m^2): 1.2 MV E max kranthi: 81.6 cm/sec PA V2 max: 82.3 cm/sec MV A max kranthi: 73.4 cm/sec PA V2 mean: 64.1 cm/sec MV E/A: 1.1 PA mean P.7 mmHg Med Peak E' Kranthi: 9.9 cm/sec PA pr(Accel): 20.8 mmHg E/E' med: 8.3 Lat Peak E' Kranthi: 11.9 cm/sec E/E' lat: 6.9 E/e' average: 7.6 MV dec time: 0.15 sec SV([facility]): 60.4 ml Reading Physician:12:31 PM
--- NOTE | 2021-08-07 | DI.NM.S_ITS ---
PROCEDURE: NM EXERCISE TREADMILL NON NUC COMPARISON: None. INDICATIONS: Abnormal electrocardiogram FINDINGS: Resting ECG sinus rhythm. Santy protocol 7 minutes, 34 seconds; 10.1 METS; LASHON +10%. Maximum heart rate 169 bpm, 96% peak predicted. Maximum blood pressure 178/78. Stress ECG sinus tachycardia, no ST segment changes, ectopy or arrhythmia. IMPRESSION: 1. No evidence of exercise-induced ischemia by ECG criteria. 2. Fair exercise capacity. 3. Normal blood pressure response to exercise. Dictated by: Shereen Boss D.O. on 08/07/2021 at 16:47 Approved by: Shereen Boss M.D. on 08/07/2021 at 17:01
[2021-08-07 15:59] LABS: COVID19 -Nasal RAPID Negative (Negative)
== END ==
PROVIDERS: PCP Registered Nurse; Referring Provider Internal Medicine Cardiovascular Disease; Visit Provider Internal Medicine Cardiovascular Disease
DX: R94.31 Abnormal electrocardiogram [ECG] [EKG] (principal); R07.9 Chest pain, unspecified; Z20.822 Contact with and (suspected) exposure to COVID-19
CPT/HCPCS: 87635; 93017; 93306

== ENCOUNTER 2022-09-09 12:41 | Emergency (ER) | payer OTHER, SELFPAY ==
[2022-09-09] VITALS (8 sets, daily range): BP systolic 121–143; BP diastolic 75–95; PULSE 91–132; RESP 16–22; TEMP 36.1; O2SAT 97–99; BMI 33.3
--- NOTE | 2022-09-09 12:49 | DI.RAD.S_ITS ---
PROCEDURE: XR CHEST 1V INDICATIONS: chest pain TECHNIQUE: One view of the chest was acquired. COMPARISON: [facility], CR, XR CHEST 1V, 01/04/2020, 18:24. FINDINGS: Surgical changes and devices: None. Lungs and pleura: Lungs are clear. No pleural effusions or pneumothorax. Mediastinum: Mediastinal contours appear normal. Heart size is normal. Bones and chest wall: No suspicious bony lesions. Overlying soft tissues appear unremarkable. IMPRESSION: No acute cardiopulmonary findings. Dictated by: Sydni Dc M.D. on 09/09/2022 at 13:48 Approved by: Sydni Dc M.D. on 09/09/2022 at 13:48
[2022-09-09 13:32] LABS: Add Manual Diff / Slide Review NO; Basophils Absolute Auto 100 /uL (0-100); Basophils Percent Auto 0.8 % (0-2); Eosinophils Absolute Auto 100 /uL (0-450); Eosinophils Percent Auto 1.2 % (2-4); Hematocrit 42.4 % (36-46); Hemoglobin 14.4 g/dL (12.0-16.0); Lymphocytes Absolute Auto 2900 /uL (1100-4500); Lymphocytes Percent Auto 25.4 % (25-40); Mean Corpuscular HGB Conc 33.9 % (30-36); Mean Corpuscular Hemoglobin 30.3 PG (26-34); Mean Corpuscular Volume 89.5 fL (80-100); Monocytes Absolute Auto 700 /uL (0-900); Monocytes Percent Auto 5.8 % (3-14); Neutrophils Absolute Auto 7800 /uL (1500-7000); Neutrophils Percent Auto 66.8 % (50-75); Platelet Count 348 X10^3/uL (150-400); Red Blood Cell Count 4.74 X10^6/uL (4.0-5.2); Red Cell Distribution Width 13.9 % (11.6-14.8); White Blood Cell Count 11.6 X10^3/uL (4.5-11.0)
[2022-09-09 13:39] LABS: Prothrombin Time 11.4 SECONDS (10.1-12.7)
[2022-09-09 13:41] LABS: PTT Partial Thromboplastin Tim 34 SECONDS (26-36)
[2022-09-09 13:47] LABS: Alanine Aminotransferase 22 IU/L (<35); Albumin 4.6 g/dL (3.5-5.0); Albumin Globulin Ratio 1.3 (1.0-2.8); Alkaline Phosphatase 94 U/L (38-126); Aspartate Aminotransferase 23 IU/L (14-36); BUN Creatinine Ratio 17.9 (6-22); Bilirubin Total 0.3 mg/dL (0.2-1.3); Blood Urea Nitrogen 15 mg/dL (7-17); Calcium 9.8 mg/dL (8.4-10.2); Carbon Dioxide 22 mmol/L (22-32); Chloride 105 mmol/L (98-107); Creatine Kinase 68 U/L (30-135); Estimated Glomerular Filt Rate > 60 mL/min (>60); Globulin 3.5 g/dL (1.7-4.1); Glucose 105 mg/dL (70-100); HEMOLYSIS 18 (0-50); Lipase 49 U/L (23-300); Magnesium 2.1 mg/dL (1.6-2.3); Potassium 3.9 mmol/L (3.4-5.1); Sodium 138 mmol/L (137-145); Total Protein 8.1 g/dL (6.3-8.2)
[2022-09-09 13:58] LABS: Troponin I < 0.012 ng/mL (0.01-0.034)
--- NOTE | 2022-09-09 14:00 | ED_ITS ---
HPI - Chest Pain General Chief Complaint: Chest Pain Stated Complaint: chest pain/[place]/sent by director of veterans affairs Time Seen by Provider: 09/09/22 13:55 Source: patient Mode of arrival: Ambulatory Limitations: no limitations History of Present Illness HPI narrative: 47-year-old female nonsmoker with history of ADHD, anxiety and asthma presents with a chief complaint of generalized chest pain with radiation to her back and shoulders which is been coming off and on since at least mid July. She states there is no obvious provocation or palliation of the symptoms. She denies any change with position, deep breath. She denies trauma or injury. She denies any history of blood clot or cancer. She denies any exertional symptoms or cardiac equivalent such as dizziness, weakness or lightheadedness. She denies nausea, vomiting or unexplained diaphoresis. She denies any exercise intolerance or increasing fatigue. She had been seen at an outside emergency department twice in the past few weeks with extensive workups including reassuring labs, EKGs and imaging. Related Data Home Medications Medication Instructions Recorded Confirmed dextroamphetamine-amphetamine 20 20 mg PO BID 08/08/19 08/08/19 mg tablet (Adderall) fluticasone 100 mcg-salmeterol 50 1 puff inhalation BID 08/08/19 08/08/19 mcg/dose blistr powdr for inhalation (Advair Diskus) fluticasone propionate 100 2 inhalation inhalation BID 08/08/19 08/08/19 mcg/actuation blister powder for inhalation (Flovent Diskus) venlafaxine 150 mg 150 mg PO DAILY 08/08/19 08/08/19 capsule,extended release 24 hr (Effexor XR) Previous Rx's Medication Instructions Recorded azithromycin 250 mg tablet See Rx Instructions PO .COMPLEX #6 08/08/19 tabs sucralfate 1 gram tablet (Carafate) 1 g PO QACHS #40 tabs 02/02/21 Allergies Allergy/AdvReac Type Severity Reaction Status Date / Time baclofen AdvReac Chest Pain Verified 09/09/22 12:46 paroxetine [From Paxil] AdvReac Palpitation Verified 09/09/22 12:46 s zolpidem [From Ambien] AdvReac Hallucinati Verified 09/09/22 12:46 ng Review of Systems Review of Systems Narrative: GENERAL: Denies chills, fatigue, malaise, fever, sweats. HEENT: Denies sinus pain, ear pain, sore throat, difficulty swallowing, dizziness. RESPIRATORY: Denies dyspnea, cough, wheezing, hemoptysis, sputum. CARDIOVASCULAR: see HPI GASTROINTESTINAL: Denies nausea, vomiting, abdominal pain, diarrhea, constipation, melena. : Denies dysuria, frequency, incontinence, hematuria, urinary retention. MUSCULOSKELETAL: denies weakness, joint pain, or bony pain SKIN: Denies rash, skin lesions, or other NEUROLOGIC: Denies weakness, headache, numbness, change in speech, confusion, seizures, incoordination. PSYCHIATRIC: No concerning psychosocial issues. 12 point review of systems is negative except for those stated above Patient History Medical History ADHD Anxiety Asthma Surgical History H/O breast augmentation H/O: hysterectomy Social History Smoking Status: Unknown if ever smoked Smoking Status: Unknown if ever smoked alcohol intake frequency: holidays/special occasions only Substance Use Type: marijuana Exam Narrative Exam Narrative: GENERAL: [47] year old patient appears stated age. Well-developed patient, in mild distress. Anxious, appears uncomfortable HEAD: Atraumatic. Normocephalic. EYES: Pupils equal round and reactive. Extraocular motions intact. No scleral icterus. No injection or drainage. ENT: Nose without bleeding, purulent drainage. Throat without erythema, tonsillar hypertrophy or exudate. Airway patent. NECK: Trachea midline. Non tender CARDIOVASCULAR: Regular rate and rhythm without murmurs, gallops, or rubs. RESPIRATORY: Clear to auscultation. Breath sounds equal bilaterally. No wheezes, rales, or rhonchi. GASTROINTESTINAL: Abdomen soft, non-tender, nondistended. EXTREMITIES: No edema or joint tenderness. BACK: Nontender without deformity or crepitance. No flank tenderness. NEURO: AOx3. SKIN: No rash or erythema of visible areas Initial Vital Signs Initial Vital Signs: Vital Signs Temperature 97.0 F L 09/09/22 12:46 Pulse Rate 132 H 09/09/22 12:46 Respiratory Rate 16 09/09/22 12:46 Blood Pressure 126/95 H 09/09/22 12:46 Pulse Oximetry 99 09/09/22 12:46 Oxygen Delivery Method 09/09/22 12:46 Course Orders Ordered: ED Orders 09/09/22 10:21 D Dimer Stat 09/09/22 12:49 XR chest 1V Stat Complete Blood Count AUTO DIFF Stat Comprehensive Metabolic Panel Stat Lipase Stat Magnesium Stat Partial Thromboplastin Time Stat Prothrombin Time INR Stat Troponin & CK Cardiac Panel Stat 09/09/22 12:53 EKG-12 Lead Stat 09/09/22 14:36 CT angio chest PE protocol Stat Vital Signs Vital signs: Vital Signs - 8 hr 09/09/22 12:46 09/09/22 13:34 09/09/22 13:35 Temperature 97.0 F L Pulse Rate 132 H 116 H 115 H Respiratory Rate 16 22 19 Blood Pressure 126/95 H Pulse Oximetry 99 98 98 Oxygen Delivery Method Room Air Room Air Room Air 09/09/22 13:35 09/09/22 14:00 09/09/22 14:00 Temperature Pulse Rate 97 H Respiratory Rate 17 Blood Pressure 123/88 143/95 H Pulse Oximetry 97 Oxygen Delivery Method Room Air 09/09/22 14:30 09/09/22 14:30 09/09/22 14:51 Temperature Pulse Rate 98 H 92 H Respiratory Rate 22 Blood Pressure 134/88 Pulse Oximetry 97 98 Oxygen Delivery Method Room Air Room Air 09/09/22 14:51 09/09/22 15:00 09/09/22 15:00 Temperature Pulse Rate 91 H Respiratory Rate Blood Pressure 139/81 127/75 Pulse Oximetry 97 Oxygen Delivery Method Room Air 09/09/22 15:30 09/09/22 15:30 Temperature Pulse Rate 94 H Respiratory Rate Blood Pressure 121/79 Pulse Oximetry 97 Oxygen Delivery Method Room Air MDM - Chest Pain Lab Data Result diagrams: 09/09/22 12:49 09/09/22 12:49 Labs: Lab Results 09/09/22 09/09/22 09/09/22 Range/Units 10:21 12:49 12:49 WBC 11.6 H (4.5-11.0) X10^3/uL RBC 4.74 (4.0-5.2) X10^6/uL Hgb 14.4 (12.0-16.0) g/dL Hct 42.4 (36-46) % MCV 89.5 (80-100) fL MCH 30.3 (26-34) PG MCHC 33.9 (30-36) % RDW 13.9 (11.6-14.8) % Plt Count 348 (150-400) X10^3/uL Neut % (Auto) 66.8 (50-75) % Lymph % (Auto) 25.4 (25-40) % [place] % (Auto) 5.8 (3-14) % Eos % (Auto) 1.2 L (2-4) % Baso % (Auto) 0.8 (0-2) % Neut # (Auto) 7800 H (1346-1128) /uL Lymph # (Auto) 2900 (9764-1839) /uL [place] # (Auto) 700 (0-900) /uL Eos # (Auto) 100 (0-450) /uL Baso # (Auto) 100 (0-100) /uL PT 11.4 (10.1-12.7) SECONDS INR 1.0 (0.9-1.3) APTT 34 (26-36) SECONDS D-Dimer 348 (<500) ng/ml Sodium (137-145) mmol/L Potassium (3.4-5.1) mmol/L Chloride (98-107) mmol/L Carbon Dioxide (22-32) mmol/L BUN (7-17) mg/dL Creatinine (0.52-1.04) mg/dL Estimated GFR (>60) mL/min BUN/Creatinine Ratio (6-22) Glucose (70-100) mg/dL Calcium (8.4-10.2) mg/dL Magnesium (1.6-2.3) mg/dL Total Bilirubin (0.2-1.3) mg/dL AST (14-36) IU/L ALT (<35) IU/L Alkaline Phosphatase (38-126) U/L Total Creatine Kinase (30-135) U/L CK-MB (CK-2) CK-MB (CK-2) Rel Index Troponin I (0.01-0.034) ng/mL Total Protein (6.3-8.2) g/dL Albumin (3.5-5.0) g/dL Globulin (1.7-4.1) g/dL Albumin/Globulin Ratio (1.0-2.8) Lipase (23-300) U/L /15/ Range/Units 12:49 WBC (4.5-11.0) X10^3/uL RBC (4.0-5.2) X10^6/uL Hgb (12.0-16.0) g/dL Hct (36-46) % MCV (80-100) fL MCH (26-34) PG MCHC (30-36) % RDW (11.6-14.8) % Plt Count (150-400) X10^3/uL Neut % (Auto) (50-75) % Lymph % (Auto) (25-40) % [place] % (Auto) (3-14) % Eos % (Auto) (2-4) % Baso % (Auto) (0-2) % Neut # (Auto) (9103-3974) /uL Lymph # (Auto) (4008-9982) /uL [place] # (Auto) (0-900) /uL Eos # (Auto) (0-450) /uL Baso # (Auto) (0-100) /uL PT (10.1-12.7) SECONDS INR (0.9-1.3) APTT (26-36) SECONDS D-Dimer (<500) ng/ml Sodium 138 (137-145) mmol/L Potassium 3.9 (3.4-5.1) mmol/L Chloride 105 (98-107) mmol/L Carbon Dioxide 22 (22-32) mmol/L BUN 15 (7-17) mg/dL Creatinine 0.84 (0.52-1.04) mg/dL Estimated GFR > 60 (>60) mL/min BUN/Creatinine Ratio 17.9 (6-22) Glucose 105 H (70-100) mg/dL Calcium 9.8 (8.4-10.2) mg/dL Magnesium 2.1 (1.6-2.3) mg/dL Total Bilirubin 0.3 (0.2-1.3) mg/dL AST 23 (14-36) IU/L ALT 22 (<35) IU/L Alkaline Phosphatase 94 (38-126) U/L Total Creatine Kinase 68 (30-135) U/L CK-MB (CK-2) TNP CK-MB (CK-2) Rel Index TNP Troponin I < 0.012 (0.01-0.034) ng/mL Total Protein 8.1 (6.3-8.2) g/dL Albumin 4.6 (3.5-5.0) g/dL Globulin 3.5 (1.7-4.1) g/dL Albumin/Globulin Ratio 1.3 (1.0-2.8) Lipase 49 (23-300) U/L Imaging Data CT scan - chest: Radiologist's Impression: Close Chest CTA (Signed) Tj Nicole - 09/09/22 Chest X-Ray (Signed) DaoSydni - 09/09/22 [facility] [address] CT Scan Report Signed Patient: Radha Childs MR#: [id number] : 1975 Acct:[id number] Age/Sex: 47 / F Date of Service: 09/09/22 Loc: ED Accession Number: [id number] ?? Procedure: CT angio chest PE protocol Ordering Provider: Rolando Stevenson D.O. PROCEDURE:? CT ANGIO CHEST PE PROTOCOL ? INDICATIONS:? chest pain, tachycardia, ? TECHNIQUE:? After the administration of intravenous contrast, 2 mm thick sections acquired from the pulmonary apices to the posterior costophrenic angles.? 3-dimensional maximum intensity projection (MIP) coronal and sagittal reformats were then acquired through the thorax.? For radiation dose reduction, the following was used:? automated exposure control, adjustment of mA and/or kV according to patient size.? ? COMPARISON:? [facility], CR, XR CHEST 1V, 09/09/2022, 12:58. ? FINDINGS:? Image quality:? Excellent.? ? Pulmonary arteries:? Pulmonary arteries are normal in size, and demonstrate no intraluminal filling defects to suggest central pulmonary embolism.? ? Lungs and pleura:? Lungs are clear.? No pleural effusions or pneumothorax.? Central and peripheral airways are patent.? ? Mediastinum:? Heart size is normal, without pericardial effusion.? No mediastinal or hilar adenopathy.? Thoracic aorta is normal in caliber and enhancement.? Esophagus is normal in caliber, with a small hiatal hernia.? ? Bones and chest wall:? Bilateral subglandular breast implants are present.? No suspicious bony lesions.? Ribs and thoracic spine appear intact throughout.? Thyroid is unremarkable.? No axillary or supraclavicular adenopathy.? ? Abdomen:? Visualized upper abdominal solid organs appear normal in the early arterial phase of enhancement.? ? IMPRESSION:? 1. No acute pulmonary embolus.? No acute abnormality is seen in the chest. 2. Small hiatal hernia.? Approved by: Tj Nicole M.D. on 09/09/2022 at 15:24? MDM Narrative Medical decision making narrative: 47-year-old female nonsmoker history of prior episodes of chest pain without obvious cardiac cause presents with widespread and atypical chest pain for the past few weeks Cardiac ischemia considered but thought unlikely as Patient reports no radiation, no diaphoresis, no provocation with exertion, and no vomiting Pulmonary embolism considered but thought unlikely given lack of findings on CT angiogram Pneumonia, pericardial effusion, pneumothorax considered but thought unlikely given lack of findings on imaging. Patient's symptoms improved over duration of stay with above-stated therapies. Findings and discharge diagnosis discussed with patient/family followed by verbalization of understanding Return precautions discussed with patient/family whom verbalize understanding. Discharge Plan Departure Patient Disposition: Home Clinical Impression: Atypical chest pain Instructions: DI for Atypical Chest Pain Activity Restrictions/Additional Instructions: *You have been diagnosed with [atypical chest pain. As we discussed your history, physical exam, EKG, labs and imaging are reassuring and there is no evidence of heart attack, blood clot, collapsed lung or other severe diagnosis that would require a specific and immediate intervention] *What to do: *Please continue to take your regular medications as directed. *Please follow up with your primary care provider in 2-3 days, call for an ap pointment. Let them know you were seen in the Emergency Department and that we ask that you be seen in follow up. We will electronically transmit a record of today's note if your PCP is in our system *If you do not have a primary care provider please contact the [facility] Resource line at [phone]. They will ask some questions about your medical history and help get you set up with a doctor in the community. *Return to Emergency Department if you should have any new, worsening or co ncerning symptoms, such as [fever greater than 101 F, shaking chills, worsening pain, persistent vomiting or other bothersome symptoms] Prescriptions: No Action venlafaxine [Effexor XR] 150 mg capsule,extended release 24hr 150 mg PO DAILY dextroamphetamine-amphetamine [Adderall] 20 mg tablet 20 mg PO BID Flovent Diskus 100 mcg/actuation blister with device 2 inhalation INHALATION BID fluticasone propion-salmeterol [Advair Diskus] 100-50 mcg/dose blister with device 1 puff INHALATION BID azithromycin 250 mg tablet See Rx Instructions PO .COMPLEX Qty: 6 0RF Rx Instructions: take 500 mg today (day 1), then 250 mg for 4 days (days 2-5) PO sucralfate [Carafate] 1 gram tablet 1 g PO QACHS Qty: 40 0RF Referrals: Yaima North ARNP [Primary Care Provider] - Visit Report Forms: Patient Portal/API
--- NOTE | 2022-09-09 14:36 | DI.CT.S_ITS ---
PROCEDURE: CT ANGIO CHEST PE PROTOCOL INDICATIONS: chest pain, tachycardia, TECHNIQUE: After the administration of intravenous contrast, 2 mm thick sections acquired from the pulmonary apices to the posterior costophrenic angles. 3-dimensional maximum intensity projection (MIP) coronal and sagittal reformats were then acquired through the thorax. For radiation dose reduction, the following was used: automated exposure control, adjustment of mA and/or kV according to patient size. COMPARISON: [facility], CR, XR CHEST 1V, 09/09/2022, 12:58. FINDINGS: Image quality: Excellent. Pulmonary arteries: Pulmonary arteries are normal in size, and demonstrate no intraluminal filling defects to suggest central pulmonary embolism. Lungs and pleura: Lungs are clear. No pleural effusions or pneumothorax. Central and peripheral airways are patent. Mediastinum: Heart size is normal, without pericardial effusion. No mediastinal or hilar adenopathy. Thoracic aorta is normal in caliber and enhancement. Esophagus is normal in caliber, with a small hiatal hernia. Bones and chest wall: Bilateral subglandular breast implants are present. No suspicious bony lesions. Ribs and thoracic spine appear intact throughout. Thyroid is unremarkable. No axillary or supraclavicular adenopathy. Abdomen: Visualized upper abdominal solid organs appear normal in the early arterial phase of enhancement. IMPRESSION: 1. No acute pulmonary embolus. No acute abnormality is seen in the chest. 2. Small hiatal hernia. Approved by: Tj Nicole M.D. on 09/09/2022 at 15:24
[2022-09-09 15:11] LABS: D Dimer 348 ng/ml (<500)
== END 2022-09-09 16:10 | disposition home or self-care (01) ==
PROVIDERS: Emergency Provider Emergency Medicine; PCP Registered Nurse
DX: R07.89 Other chest pain (principal)
CPT/HCPCS: 36415; 71045; 71275; 80053; 82550; 83690; 83735; 84484; 85025; 85379; 85610; 85730; 93005; 93010; 99284; Q9967